=== PATIENT | male | born 1985 | race African-American/Black ===

== ENCOUNTER → 2018-08-23 | Outpatient (CLI) | payer OTHER ==
--- NOTE | 2018-08-23 15:55 | KCIC ---
History: Chronic low back pain into left hip returning 2 months ago. Comparison: None. Findings: AP view of the pelvis. AP and frog-leg views of left hip. No acute fracture or dislocation is identified. No significant degeneration is seen. Mild degeneration of the pubic symphysis is seen. Vasectomy clips are noted. Impression: Unremarkable left hip radiographs. Electronically signed by: Gregg Mitchell MD (08/23/2018 3:52 PM) [facility]
--- NOTE | 2018-08-23 15:56 | KCIC ---
History: Chronic low back pain radiating to the left hip, returning 2 months ago. Comparison: None. Findings: AP, lateral, and bilateral oblique views of the lumbar spine, 5 images. 5 lumbar type vertebral bodies are present. No acute fracture or acute malalignment is identified. No spondylolysis or spondylolisthesis is appreciated. No significant degeneration is seen. Impression: Unremarkable lumbar spine radiographs. Electronically signed by: Gregg Mitchell MD (08/23/2018 3:53 PM) [facility]
== END | disposition home or self-care (01) ==
LOC: KCIC 14:48
PROVIDERS: ATTEND Physician Assistant Medical
DX: S39.012A Strain of muscle, fascia and tendon of lower back, initial encounter (principal); M16.12 Unilateral primary osteoarthritis, left hip; X58.XXXA Exposure to other specified factors, initial encounter; Y93.89 Activity, other specified; Y92.89 Other specified places as the place of occurrence of the external cause; Y99.8 Other external cause status
CPT/HCPCS: 72110; 73502

== ENCOUNTER → 2018-11-01 | Outpatient (CLI) | payer OTHER ==
--- NOTE | 2018-11-01 11:08 | KCIC ---
MRI Lumbar Spine without contrast History: Right leg radiculopathy, low back pain into the right lower extremity for 4 months, repetitive lifting Technique: Multiplanar, multi sequential noncontrast MR imaging was performed of the lumbar spine. Comparison: None Findings: There is mild motion degradation. Lumbar vertebral body stature and AP alignment are maintained. Intervertebral disc spaces are maintained. Conus terminates at L1. There is no significant marrow edema. No spondylolysis is identified. There is no significant lumbar spinal stenosis or neural foramina compromise. There is no significant focal posterior disc abnormality of the lumbar spine. Impression: 1. No significant abnormality is identified. Electronically signed by: Kirk Watson MD (11/01/2018 11:04 AM) [facility]-KCIC1
== END | disposition home or self-care (01) ==
LOC: KCIC MRI 10:07
PROVIDERS: ATTEND Physician Assistant Medical
DX: S39.012D Strain of muscle, fascia and tendon of lower back, subsequent encounter (principal); M54.16 Radiculopathy, lumbar region; X58.XXXD Exposure to other specified factors, subsequent encounter
CPT/HCPCS: 72148

== ENCOUNTER → 2020-06-25 | Outpatient (CLI) | payer OTHER ==
--- NOTE | 2020-06-25 12:52 | KCIC ---
HIP LEFT 2V WITH PELVIS DATE: 06/25/2020 12:00 AM INDICATION: INJURY LEFT GROIN. Pain about 1 month. COMPARISON: None. FINDINGS: Bones: There is no evidence of acute fracture or dislocation. Joints: Hips and SI joints are maintained. Mild degenerative changes of the pubic symphysis. Miscellaneous: Pelvic phleboliths. IMPRESSION: No acute osseous abnormality Electronically signed by: Kirk Zamora MD (06/25/2020 12:49 PM) [facility]
== END | disposition home or self-care (01) ==
LOC: KCIC 11:10
PROVIDERS: ATTEND Internal Medicine
DX: S39.91XA Unspecified injury of abdomen, initial encounter (principal); M16.12 Unilateral primary osteoarthritis, left hip; I87.8 Other specified disorders of veins; X58.XXXA Exposure to other specified factors, initial encounter; Y93.89 Activity, other specified; Y92.89 Other specified places as the place of occurrence of the external cause; Y99.8 Other external cause status
CPT/HCPCS: 73502

== ENCOUNTER → 2021-04-24 | Outpatient (CLI) | payer OTHER ==
--- NOTE | 2021-04-24 12:36 | KCIC ---
EXAM: Right shoulder, 3 views. HISTORY: Pain. COMPARISON: None. FINDINGS: 3 views of the right shoulder obtained. There is no fracture, dislocation or subluxation. IMPRESSION: No acute osseous finding. Electronically signed by: Noreen Varner MD (04/24/2021 12:34 PM) [id number]
== END ==
LOC: KCIC 11:24
PROVIDERS: ATTEND Family Medicine
DX: M25.511 Pain in right shoulder (principal)
CPT/HCPCS: 73030

== ENCOUNTER → 2021-09-22 | Outpatient (CLI) | payer OTHER ==
--- NOTE | 2021-09-29 09:24 | SLEEP ---
DATE OF STUDY: 09/22/2021 HOME SLEEP STUDY ATTENDING: Tyron Castillo PA-C The patient is 36 years old who weighs 225 pounds with a BMI of 29. The patient's Wayland score was 12. The patient underwent home sleep study performed by [facility]. Total recording time was 536 minutes. During the night study, the patient had 2 obstructive apneas, 23 mixed apneas, 1 central apnea and 92 hypopneas. The patient's AHI was 14.3 per hour. Nocturnal oximetry study revealed no significant desaturations. Mean heart rate 67 beats per minute with a maximum of 100 beats per minute. IMPRESSION: 1. Mild obstructive sleep apnea at an apnea-hypopnea index of 14.3 per hour. 2. No significant nocturnal hypoxia. RECOMMENDATIONS: 1. The patient has mild PERRI. Weight loss can be considered as the initial form of treatment. 2. If the patient has comorbid conditions or is clinically symptomatic, then consider treatment of sleep apnea with either CPAP versus oral appliance. 3. Once the patient is optimally treated, then follow up in 4-6 weeks to assess compliance and to document clinical improvement. 4. Avoid [employer] depressants. 5. Cautioned regarding driving until symptoms of sleep apnea resolve with above recommendations. GATO DR: Anneliese TID: [id number] CC: Tyron Castillo PA-C
== END ==
LOC: RT 09:11
PROVIDERS: ATTEND Physician Assistant Medical
DX: G47.33 Obstructive sleep apnea (adult) (pediatric) (principal); G47.19 Other hypersomnia; R06.83 Snoring
CPT/HCPCS: G0399

== ENCOUNTER → 2021-11-02 | Outpatient (CLI) | payer OTHER ==
--- NOTE | 2021-11-02 12:06 | KCIC ---
EXAM: Left elbow, 3 views. HISTORY: Pain and swelling. COMPARISON: None. FINDINGS: 3 views there is no fracture, dislocation or subluxation. There is no elbow effusion. There are is a small enthesophyte along the posterior olecranon. IMPRESSION: No acute osseous finding. Electronically signed by: Noreen Varner MD (11/02/2021 12:04 PM) [id number]
== END ==
LOC: KCIC 11:10
PROVIDERS: ATTEND Physician Assistant Medical
DX: M25.522 Pain in left elbow (principal)
CPT/HCPCS: 73080

== ENCOUNTER → 2022-02-01 | Outpatient (CLI) | payer OTHER ==
--- NOTE | 2022-02-01 12:18 | KCIC ---
XR SHOULDER_RIGHT 2+ VIEWS DATE: 02/01/2022 10:46 AM INDICATION: ACUTE PAIN RT SHOULDER, LROM, FELL 2 DAYS AGO PLAYING BASKETBALL COMPARISON: None. FINDINGS: Bones: There is no evidence of acute fracture or dislocation. Joints: The joint spaces are normal. The acromiohumeral distance is not narrowed. Miscellaneous: No abnormal soft tissue calcifications in the shoulder. IMPRESSION: No evidence of acute fracture. Electronically signed by: Kirk Zamora MD (02/01/2022 12:15 PM) [id number]
== END ==
LOC: KCIC 10:02
PROVIDERS: ATTEND Physician Assistant Medical
DX: M25.511 Pain in right shoulder (principal); W19.XXXA Unspecified fall, initial encounter
CPT/HCPCS: 73030